=== PATIENT | female | born 1975 | race Caucasian/White ===

== ENCOUNTER 2021-11-06 17:41 | Emergency (ER) | payer OTHER ==
[~2021-11-06] VITALS: Ht 154.9 cm; Wt 61.8 kg
[2021-11-06] MEDS ORDERED: DULO-113 PO (18:16)
[2021-11-06] MEDS ORDERED: VERA240T96 PO (18:16)
[2021-11-06] MEDS ORDERED: INDO-16 PO (18:16)
[2021-11-06 20:00] VITALS: BP 125/68
== END 2021-11-06 20:13 | disposition home or self-care (01) ==
LOC: EMS 17:45
DX: G62.9 Polyneuropathy, unspecified (principal); I10 Essential (primary) hypertension; F17.210 Nicotine dependence, cigarettes, uncomplicated; Z79.899 Other long term (current) drug therapy
CPT/HCPCS: 70450; 99284